=== PATIENT | male | born 1970 | race Caucasian/White ===

== ENCOUNTER 2021-06-21 00:35 | Emergency (ER) | payer BC, SELFPAY ==
--- NOTE | 2021-06-21 01:20 | [facility].EDGENADL ---
ED Disposition Clinical Impression: COVID-19 virus infection, Dehydration, Transaminasemia Headache Qualifiers: Headache type: unspecified Headache chronicity pattern: acute headache Intractability: intractable Qualified Code(s): R51.9 - Headache, unspecified Abdominal pain Qualifiers: Abdominal location: epigastric Qualified Code(s): R10.13 - Epigastric pain Disposition: Home, Self-Care Condition on Discharge: Fair Instructions: DI for COVID-19 (Suspected or Confirmed ) Additional Instructions: Phenergan as needed for nausea/vomiting. Continue Tylenol, ibuprofen, tramadol for pain. Rest and drink plenty of fluids. Return to the emergency department for worsening abdominal pain, worsening headache, persistent vomiting, or shortness of breath. Referrals: Provider,Referral, MD [Primary Care Provider] - - Critical Care Critical Care Time: No Attestation: On 06/21/21, the high probability of a clinically significant, sudden or life threatening deterioration of the following system(s) required my full and direct attention, intervention and personal management. The time I documented below is in addition to time spent performing reported procedures but includes the following listed in this critical care notation. Medical Decision Making - Aaron Inquiry Pt receiving controlled substance: No Aaron was queried for this patient: Yes Vital Signs: 06/21/21 01:21 06/21/21 02:52 Temperature 98.1 F Temperature Source Oral Pulse Rate 82 Pulse Rate [Right] 102 H Respiratory Rate 18 16 Blood Pressure 114/80 Blood Pressure [Right Arm] 107/77 L Blood Pressure Mean [Right Arm] 87 Blood Pressure Source [Right Arm] Automatic Cuff Blood Pressure Position [Right Arm] Sitting 02 Sat by Pulse Oximetry 94 L 97 Oxygen Delivery Method Room Air Room Air - Lab Data Lab Results 06/21/21 01:50: WBC 11.3 H, RBC 5.15, Hgb 15.1, Hct 43.5, MCV 84.4, MCH 29.3, MCHC 34.8, RDW 13.5, Plt Count 307, MPV 6.9 L, Neut % (Auto) 70.0, Lymph % (Auto) 20.8, [place] % (Auto) 7.8, Eos % (Auto) 0.9, Baso % (Auto) 0.5, Neut # (Auto) 7.9 H, Lymph # (Auto) 2.4, [place] # (Auto) 0.9, Eos # (Auto) 0.1, Baso # (Auto) 0.1 06/21/21 01:50: Sodium 138, Potassium 3.3 L, Chloride 101, Carbon Dioxide 27, Anion Gap 13.3, BUN 25 H, Creatinine 0.60 L, Estimated Creat Clear 222, Estimated GFR 143, Est GFR ( Amer) 173, Glucose 114 H, Calcium 9.1, Total Bilirubin 0.7, Direct Bilirubin 0.4, Conjugated Bilirubin 0.0, Indirect Bilirubin 0.3, Unconjugated Bilirubin 0.3, AST 112 H, ALT 168 H, Alkaline Phosphatase 125, Total Protein 7.7, Albumin 4.2, Lipase 130 Result diagrams: 06/21/21 01:50 06/21/21 01:50 Orders (Tests/Meds): ED MEDICATIONS Generic Name Dose Route Start Last Admin Trade Name Freq PRN Reason Stop Dose Admin Promethazine HCl 1 odalys 06/21/21 02:57 06/21/21 03:02 Promethazine 25mg Tablet Take Home Pack (10) PO 07/21/21 02:56 1 odalys Q6HP PRN Administration Nausea And Vomiting Discontinued Medications Generic Name Dose Route Start Last Admin Trade Name Freq PRN Reason Stop Dose Admin Acetaminophen 1,000 mg 06/21/21 02:21 06/21/21 02:23 Acetaminophen 500mg Tab PO 06/21/21 02:22 1,000 mg ONCE ONE Administration Ketorolac Tromethamine 30 mg 06/21/21 01:18 06/21/21 01:57 Ketorolac 30mg/Ml Vial IV 06/21/21 01:19 30 mg ONCE ONE Administration Ondansetron HCl 4 mg 06/21/21 01:18 06/21/21 01:57 Ondansetron 4mg/2ml Vial IV 06/21/21 01:19 4 mg ONCE ONE Administration Sodium Chloride 1,000 ml 06/21/21 01:19 06/21/21 01:57 Sodium Chloride 0.9% 1000ml Bag IV 06/21/21 01:20 1,000 ml BOLUS ONE Administration - Reevaluation(s) Time: 02:23 Reevaluation #1: States abdomen is just a little crampy right now, states headache is his main problem currently. Time: 02:58 Reevaluation #3: Feels improved. Headache has improved. He said his abdominal cramping had resolved, but start
[2021-06-21 01:21] VITALS: BP 107/77; PULSE 102; RESP 18; TEMP 36.7; O2SAT 94; BMI 30.9
[2021-06-21 01:58] LABS: Basophils # 0.1 K/mm3 (0-0.2); Basophils % 0.5 % (0.1-2.0); Eosinophils # 0.1 K/mm3 (0.0-0.4); Eosinophils % 0.9 % (0.1-12.0); Hematocrit 43.5 % (42.0-52.0); Hemoglobin 15.1 g/dL (14.1-18.0); Lymphocytes # 2.4 K/mm3 (0.7-4.5); Lymphocytes % 20.8 % (10-50); Mean Corpuscular HGB Conc 34.8 g/dL (31.8-35.4); Mean Corpuscular Hemoglobin 29.3 pg (27.0-31.2); Mean Corpuscular Volume 84.4 fl (80-94); Mean Platelet Volume 6.9 fl (7.4-10.4); Monocytes # 0.9 K/mm3 (0.1-1.0); Monocytes % 7.8 % (1.7-9.3); Neutrophils # 7.9 K/mm3 (1.8-7.8); Platelet Count 307 K/mm3 (142-424); Red Blood Count 5.15 M/mm3 (4.60-6.20); Red Cell Distribution Width 13.5 % (11.5-17.5); White Blood Count 11.3 K/mm3 (4.8-10.8)
[2021-06-21 02:09] LABS: Alanine Aminotransferase 168 U/L (12-78); Albumin Level 4.2 g/dl (3.5-5.0); Alkaline Phosphatase 125 U/L (38-126); Anion Gap 13.3 mEq/L (5-15); Aspartate Amino Transferase 112 U/L (17-59); Bilirubin,Direct 0.4 mg/dl (0.0-0.4); Bilirubin,Indirect 0.3 mg/dL (0.0-0.9); Bilirubin,Total 0.7 mg/dl (0.2-1.3); Bilirubin,Unconjugated 0.3 mg/dL (0.0-1.1); Blood Urea Nitrogen 25 mg/dl (9-20); Calcium 9.1 mg/dl (8.4-10.2); Carbon Dioxide 27 mmol/L (22.0-30.0); Chloride 101 mmol/L (98-107); Creatinine Clearance Estimated 222 mL/min (50-200); Estimated Glomerular Filt Rate 143 ml/min (>60); GFR (African American) 173 ML/MIN (>60); Glucose 114 mg/dl (74-100); Lipase 130 U/L (23-300); Potassium 3.3 mmoL/L (3.5-5.1); Sodium 138 mmol/L (136-145); Total Protein,Serum 7.7 g/dl (6.3-8.2)
[2021-06-21 02:52] VITALS: BP 114/80; PULSE 82; RESP 16; O2SAT 97
[2021-06-21 03:13] VITALS: BP 114/80; PULSE 82; RESP 16; TEMP 36.7; O2SAT 97
== END 2021-06-21 03:15 | disposition home or self-care (01) ==
PROVIDERS: Emergency Provider Emergency Medicine
DX: U07.1 COVID-19 (principal); E86.0 Dehydration; R74.01 Elevation of levels of liver transaminase levels; R51.9 Headache, unspecified
CPT/HCPCS: 80048; 80076; 83690; 85025; 96365; 96375; 99282; J2405